=== PATIENT | male | born 1965 | race Two or more races ===

== ENCOUNTER 2020-10-07 07:34 | Day surgery (SDC) | payer OTHER ==
[~2020-10-07 07:34] MED LIST: BUPROPION XL300 MG PO; CLONAZEPAM1 MG PO; ESCITALOPRAM OX10 MG PO; LITHIUM CARBON450 MG PO; LOSARTAN-HCTZ1 EAC2 PO
[2020-10-07] MEDS ORDERED: ACETAMINOPHEN-1 EAC2 PO (13:09)
== END 2020-10-07 21:25 | disposition home or self-care (01) ==
LOC: CIR.AMB 07:34
PROVIDERS: ATTEND Surgery
DX: N52.8 Other male erectile dysfunction (principal); N48.6 Induration penis plastica; Z20.822 Contact with and (suspected) exposure to COVID-19
CPT/HCPCS: 54405; 54112; C1813